=== PATIENT | female | born 1980 | race Two or more races ===

== ENCOUNTER 2024-06-08 06:25 | Day surgery (SDC) | payer OTHER ==
[2024-06-04 16:29] VITALS: BMI 33.7
[2024-06-08] MEDS ORDERED: PROPOFOL 20 ML ONE ×2 (13:16→14:04)
[2024-06-08] MEDS ORDERED: DEXAMETHASONE SOD PHOSPHATE 4 MG/1 ML VIAL ONE (13:16)
[2024-06-08] MEDS ORDERED: MIDAZOLAM HCL 2 MG/2 ML SINGLE DOSE VIAL ONE (13:16)
[2024-06-08] MEDS ORDERED: ONDANSETRON 4 MG/2 ML VIAL ONE (13:16)
[2024-06-08] MEDS: ceFAZolin 2 GRAM PREMIX BAG IVPB ONE (13:38)
[2024-06-08] MEDS ORDERED: ONDANSETRON 4 MG/2 ML VIAL IVPUSH PRN (14:20)
[2024-06-08] MEDS ORDERED: IBUPROFEN 800 MG/8 ML IJ IVPB PRN (14:29)
[2024-06-08] MEDS ORDERED: ACETAMINOPHEN 325 MG TABLET (FP) PO PRN (14:29)
[2024-06-08] MEDS ORDERED: IBUPROFEN 600 MG TABLET (FP) PO PRN (14:29)
[2024-06-08] MEDS: LACTATED RINGERS SOLUTION 1,000 ML IV SCH (15:34)
[2024-06-08] MEDS ORDERED: ACETAMINOPHEN INJECTION 100 ML ONE (15:41)
[2024-06-08] MEDS: ACETAMINOPHEN 1000 MG/100 ML BAG IVPB ONE (15:48)
[2024-06-08 15:50] VITALS: RESP 16
[2024-06-08] MEDS ORDERED: oxyCODONE HCL 5 MG TABLET ONE (16:43)
[2024-06-08] MEDS: oxyCODONE HCL 5 MG TABLET PO PRN (16:56)
[2024-06-08 17:04] VITALS: PULSE 68; TEMP 97.8
[2024-06-08 17:21] VITALS: BP 117/76
[2024-06-08] MEDS ORDERED: ACETAMINOPHEN 1000 MG/100 ML BAG IVPB ONE (17:44)
== END 2024-06-08 17:45 | disposition home or self-care (01) ==
LOC: JASU-SURG 06:25
PROVIDERS: ATTEND Obstetrics & Gynecology
PROC: 0UDB8ZX Extraction of Endometrium, Via Natural or Artificial Opening Endoscopic, Diagnostic (ICD-10-PCS; principal; 2024-06-08 13:00)
PROC: 0U5B8ZZ Destruction of Endometrium, Via Natural or Artificial Opening Endoscopic (ICD-10-PCS; 2024-06-08 13:00)
DX: N92.0 Excessive and frequent menstruation with regular cycle (principal)
CPT/HCPCS: 81025; 88305-TC; 94760; J0131